=== PATIENT | female | born 1945 | race Two or more races ===

== ENCOUNTER → 2016-07-27 | Outpatient (REF) | payer MEDICARE, BC ==
[~2016-07-27] MED LIST: AREDS FORMULA PO; ASPI81TA85 PO; CENT1TAB PO; TRAZ50TA11 PO; VITA1CAP14 PO; VITA1DRO SL; ZOCO20TA PO
[2016-07-27 12:20] LABS: MEAN CORPUSCULAR HEMOGLOBIN 29.8 pg (27.0-33.0); MEAN CORPUSCULAR HGB CONC 33.1 g/dl (32.0-36.5); MEAN CORPUSCULAR VOLUME 90.2 fl (80.0-96.0); RED CELL DISTRIBUTION WIDTH 13.7 % (11.5-14.5)
[2016-07-27 13:04] LABS: ALBUMIN/GLOBULIN RATIO 1.33 (1.00-1.93); ALKALINE PHOSPHATASE 114 U/L (45-117); ALT/SGPT 39 U/L (12-78); ANION GAP 7 MEQ/L (8-16); AST/SGOT 25 U/L (15-37); BILIRUBIN,TOTAL 0.5 MG/DL (0.2-1.0); BLOOD UREA NITROGEN 18 MG/DL (7-18); CALCIUM LEVEL 9.1 MG/DL (8.8-10.2); CARBON DIOXIDE LEVEL 28 MEQ/L (21-32); CHLORIDE LEVEL 107 MEQ/L (98-107); CHOLESTEROL LEVEL 211 MG/DL (<200); CREATININE FOR GFR 0.88 MG/DL (0.55-1.02); GLOMERULAR FILTRATION RATE > 60.0 (>45); GLUCOSE, FASTING 80 MG/DL (80-110); POTASSIUM SERUM 4.7 MEQ/L (3.5-5.1); SODIUM LEVEL 142 MEQ/L (136-145); TRIGLYCERIDES LEVEL 133 MG/DL (<150)
[2016-07-28 10:47] LABS: HEP C VIRUS AB SCREEN MEDICARE 0.1 INDEX (<0.8)
== END ==
LOC: M SFHCPLAZ 10:12
PROVIDERS: ATTEND Nurse Practitioner Adult Health
DX: E78.00 Pure hypercholesterolemia, unspecified (principal); E55.9 Vitamin D deficiency, unspecified; Z11.59 Encounter for screening for other viral diseases; Z87.891 Personal history of nicotine dependence; Z23 Encounter for immunization; Z79.82 Long term (current) use of aspirin; Z79.899 Other long term (current) drug therapy; Z86.79 Personal history of other diseases of the circulatory system; Z82.49 Family history of ischemic heart disease and other diseases of the circulatory system
CPT/HCPCS: 36415; 80053; 80061; 82306; 85027; 90670; G0009; G0463; G0472

== ENCOUNTER → 2016-08-24 | Outpatient (REF) | LOC: M LAB 10:14 | PROVIDERS: ATTEND Nurse Practitioner Adult Health | DX: Z00.00 Encounter for general adult medical examination without abnormal findings (principal) ==

== ENCOUNTER → 2016-08-25 | Outpatient (CLI) | payer MEDICARE, BC ==
--- NOTE | 2016-08-25 15:29 | REP ---
REASON: Tobacco abuse. COMPARISON: None. [facility] examination [facility] terminal for interpretation in lung window settings only as per the protocol. In the left lower lobe, there is a 4 mm sized nodule. IMPRESSION: Positive CT lung screening exam. Signed by Fredrick Rojas DO 08/26/2016 09:03 A
== END ==
LOC: M RAD 14:31
PROVIDERS: ATTEND Nurse Practitioner Adult Health
DX: Z87.891 Personal history of nicotine dependence (principal)

== ENCOUNTER → 2016-09-13 | Outpatient (RCR) | payer MEDICARE, BC | LOC: M PT 08-23 12:44 | PROVIDERS: ATTEND Physician Assistant Surgical | DX: M54.2 Cervicalgia (principal); M54.5 Low back pain | CPT/HCPCS: 97110; 97162; G8978; G8979 ==

== ENCOUNTER 2016-09-20 12:05 | Outpatient (RCR) | payer MEDICARE, BC ==
[2016-11-11] MEDS ORDERED: VITA1CAP14 PO (12:31)
[2016-11-11] MEDS ORDERED: AREDS FORMULA PO (12:31)
[2016-11-11] MEDS ORDERED: CENT1TAB PO (12:31)
[2016-11-11] MEDS ORDERED: ZOCO20TA PO (12:31)
[2016-11-11] MEDS ORDERED: ASPI81TA85 PO (12:31)
[2016-11-11] MEDS ORDERED: VITA1DRO SL (12:31)
[2016-11-11] MEDS ORDERED: TRAZ50TA11 PO (12:31)
== END 2016-10-14 | disposition home or self-care (01) ==
LOC: M PT 12:05
PROVIDERS: ATTEND Physician Assistant Surgical
DX: Z51.89 Encounter for other specified aftercare (principal); M54.2 Cervicalgia; M54.5 Low back pain
CPT/HCPCS: 97110; G8978; G8979

== ENCOUNTER 2016-11-16 11:37 | Outpatient (CLI) | payer MEDICARE, BC ==
[~2016-11-16] VITALS: Ht 160 cm; Wt 72.6 kg
[2016-11-16] MEDS ORDERED: NS 1,000 ML IV ONE (11:45)
[2016-11-16] MEDS ORDERED: PROPOFOL 200 MG/20 ML VIAL As Ordered ONE (12:30)
[2016-11-16] MEDS ORDERED: LIDOCAINE 2% INJ 100 MG/5 ML SDV (FOR ANES.) As Ordered ONE (12:30)
--- NOTE | 2016-11-16 12:59 | ROOR ---
Patient Name: Netta Connor Procedure Date: 11/16/2016 12:46 PM Date of : 1945 Age: 71 Room: [facility] Gender: Female Note Status: Finalized Procedure: Upper Endoscopy + Biopsies Indications: Heartburn, Exclusion of Correa's esophagus Providers: Joshua Lay MD Referring MD: Myranda Delgado NP Requesting Provider: Medicines: Monitored Anesthesia Care Complications: No immediate complications. Procedure: Pre-Anesthesia Assessment: - The heart rate, respiratory rate, oxygen saturations, blood pressure, adequacy of pulmonary ventilation, and response to care were monitored throughout the procedure. The Endoscope was introduced through the mouth, and advanced to the second part of duodenum. The upper GI endoscopy was accomplished without difficulty. The patient tolerated the procedure well. Findings: The Z-line was irregular and was found 35 cm from the incisors. Multiple biopsies were obtained with cold forceps for evaluation to rule out Correa's Esophagus randomly at the gastroesophageal junction. A small hiatal hernia was present. Localized minimal inflammation characterized by congestion (edema) and erosions was found on the greater curvature of the stomach. The exam of the duodenum was otherwise normal. Impression: - Z-line irregular, 35 cm from the incisors. - Small hiatal hernia. - Acute gastritis. - Multiple biopsies were obtained at the gastroesophageal junction. - The examination was otherwise normal. Recommendation: - Patient has a contact number available for emergencies. The signs and symptoms of potential delayed complications were discussed with the patient. Return to normal activities tomorrow. Written discharge instructions were provided to the patient. - High fiber diet. - Discharge patient to home. - Continue present medications. - Follow an antireflux regimen. - Await pathology results. - Telephone GI clinic for pathology results in 1 week. - Check Portal Online for Path Results.([email or web address]) Joshua Lay MD Joshua Lay MD 11/16/2016 12:59:23 PM This report has been signed electronically. Number of Addenda: 0 Note Initiated On: 11/16/2016 12:46 PM Estimated Blood Loss: Estimated blood loss: none.
--- NOTE | 2016-11-16 13:12 | ROOR ---
Patient Name: Netta Connor Procedure Date: 11/16/2016 12:46 PM Date of : 1945 Age: 71 Room: [facility] Gender: Female Note Status: Finalized Procedure: Total Colonoscopy to Cecum Indications: Screening for colorectal malignant neoplasm Providers: Joshua Lay MD Referring MD: Myranda Delgado NP Requesting Provider: Medicines: Monitored Anesthesia Care Complications: No immediate complications. Procedure: Pre-Anesthesia Assessment: - The heart rate, respiratory rate, oxygen saturations, blood pressure, adequacy of pulmonary ventilation, and response to care were monitored throughout the procedure. The Colonoscope was introduced through the anus and advanced to the cecum, identified by appendiceal orifice and ileocecal valve. The colonoscopy was performed without difficulty. The patient tolerated the procedure well. The quality of the bowel preparation was good. Findings: The perianal and digital rectal examinations were normal. A few small-mouthed diverticula were found in the recto-sigmoid colon and sigmoid colon. The exam was otherwise without abnormality on direct and retroflexion views. Impression: - Diverticulosis in the recto-sigmoid colon and in the sigmoid colon. - The examination was otherwise normal on direct and retroflexion views. - No specimens collected. - The exam was otherwise normal to the cecum. Recommendation: - Patient has a contact number available for emergencies. The signs and symptoms of potential delayed complications were discussed with the patient. Return to normal activities tomorrow. Written discharge instructions were provided to the patient. - High fiber diet. - Discharge patient to home. - Continue present medications. - Repeat colonoscopy for symptoms only. - Return to referring physician. - The findings and recommendations were discussed with the patient's family. Joshua Lay MD Joshua Lay MD 11/16/2016 1:11:55 PM This report has been signed electronically. Number of Addenda: 0 Note Initiated On: 11/16/2016 12:46 PM Estimated Blood Loss: Estimated blood loss: none.
[2016-11-16 14:45] VITALS: BP 140/71
== END 2016-11-16 14:50 | disposition home or self-care (01) ==
LOC: M OPP 11:37
PROVIDERS: ATTEND Internal Medicine Gastroenterology
DX: Z12.11 Encounter for screening for malignant neoplasm of colon (principal); K57.30 Diverticulosis of large intestine without perforation or abscess without bleeding; R12 Heartburn; K44.9 Diaphragmatic hernia without obstruction or gangrene; K22.8 Other specified diseases of esophagus; K29.00 Acute gastritis without bleeding; K21.9 Gastro-esophageal reflux disease without esophagitis; E78.5 Hyperlipidemia, unspecified; I34.1 Nonrheumatic mitral (valve) prolapse; D64.9 Anemia, unspecified; M19.90 Unspecified osteoarthritis, unspecified site; M54.5 Low back pain; M54.2 Cervicalgia; Z96.641 Presence of right artificial hip joint; Z79.82 Long term (current) use of aspirin; Z79.899 Other long term (current) drug therapy
CPT/HCPCS: 43239; 88305; G0121

== ENCOUNTER 2017-01-13 07:12 | Day surgery (SDC) | payer MEDICARE, BC ==
[~2017-01-13] VITALS: Ht 160 cm; Wt 75.7 kg
[~2017-01-13 07:12] MED LIST changes: +OFLOXACIN 0.3 % (OCUFLOX) OPTH SOL 5ML OD ONE; +PHENYLEPHRINE 2.5% OPHTH SOL 2ML OD ONE; +PROPARACAINE 0.5% OPHTH SOL 15ML OD ONE; +TROPICAMIDE 1% OPHTH SOLN 2ML OD ONE
[2017-01-13] MEDS ORDERED: POVIDONE-IODINE 5% OPHTH PREP SOL 30ML As Ordered ONE (09:01)
[2017-01-13] MEDS ORDERED: ACETYLCHOLINE OPHTH SOLN 1% 2ML (MIOCHOL-E) As Ordered ONE (09:01)
[2017-01-13] MEDS ORDERED: BALANCED SALT IRRIGATION SOLUTION 500ML BAG (FOR OR EYE MACHINE) As Ordered ONE (09:02)
[2017-01-13] MEDS ORDERED: CEFUROXIME 1MG/0.1ML INTRACAMERAL INJ As Ordered ONE (09:02)
[2017-01-13] MEDS ORDERED: LIDOCAINE 0.75%/EPINEPHRINE 0.025% IN BSS 1ML SYR INTRACAMERAL (OR ONLY) As Ordered ONE (09:02)
[2017-01-13] MEDS ORDERED: DUOVISC (0.50ML VISCOAT/0.55ML PROVISC) OPHTH KIT As Ordered ONE (09:02)
[2017-01-13] MEDS ORDERED: fentaNYL 100 MCG/2 ML INJECTION (J3010) As Ordered ONE (09:12)
[2017-01-13] MEDS ORDERED: MIDAZOLAM INJ 2 MG/2 ML VIAL (J2250) As Ordered ONE (09:12)
[2017-01-13 10:30] VITALS: BP 140/79
--- NOTE | 2017-01-14 13:12 | RO ---
DATE OF PROCEDURE: 01/13/2017 PREOPERATIVE DIAGNOSIS: Visually significant nuclear sclerotic cataract right eye. POSTOPERATIVE DIAGNOSIS: Visually significant nuclear sclerotic cataract right eye. PROCEDURE: Cataract extraction with use of phacoemulsification and placement of intraocular lens, AU00T0, 24 diopter, right eye. SURGEON: Rodrigo Lay DO HOT HEADER OPERATOR: ANESTHESIA: Local with monitored anesthesia care (MAC). COMPLICATIONS: None. POSTOPERATIVE CONDITION: Stable. INDICATION FOR SURGERY: Blurred vision right eye affecting patient's activities of daily living. DESCRIPTION OF PROCEDURE: The patient was seen in the preoperative area and properly identified. The correct operative eye was identified and marked. Attention was turned to that eye. The patient received topical antibiotics in the preoperative area. The patient then received topical dilating drops consisting of tropicamide and phenylephrine. The patient was then transferred to the operating room. The correct side was re-identified. The patient received topical anesthetics and antibiotics on the surface of the eye. The eye was prepped and draped in a sterile fashion. The upper and lower eyelids were isolated with Tegaderm tape, and the lids were held open with an adjustable speculum. Using a sideport blade, a paracentesis incision was made. Intraocular preservative-free lidocaine was then injected into the anterior chamber. Viscoelastic was then injected into the anterior chamber through the paracentesis. Using a 2.65 mm sharp-tipped keratome, the anterior chamber was entered via a temporal clear corneal incision. A continuous curvilinear capsulorrhexis was created with the aid of a 26-gauge cystotome and Utrata forceps. Hydrodissection was performed with balanced salt solution (BSS) on a blunt cannula until the nucleus was freely mobile. The crystalline lens was phacoemulsified and aspirated. Additional cohesive viscoelastic was placed into the capsular bag to deepen it. A AU00T0, 24 diopter lens was placed into the capsular bag and confirmed by visualizing the continuous curvilinear capsulorrhexis. Additional irrigation and aspiration was used to remove cortical material and remaining viscoelastic. The clear corneal incision was hydrated with BSS on a blunt cannula. The lens was well positioned. The incisions were then tested for leaks and found to be negative. The eye was then palpated for appropriate pressure and adjusted accordingly with BSS. The eyelid speculum was carefully removed. TobraDex ointment was placed in the eye. An eye patch and shield were then secured over the eye. The patient tolerated the procedure well and was discharged to the recovery unit in a stable condition.
== END 2017-01-13 10:35 | disposition home or self-care (01) ==
LOC: M SDC 07:12
PROVIDERS: ATTEND Ophthalmology
DX: H25.11 Age-related nuclear cataract, right eye (principal); H33.10 Unspecified retinoschisis; H35.30 Unspecified macular degeneration; H04.129 Dry eye syndrome of unspecified lacrimal gland; I34.1 Nonrheumatic mitral (valve) prolapse; M50.30 Other cervical disc degeneration, unspecified cervical region; E78.5 Hyperlipidemia, unspecified; E55.9 Vitamin D deficiency, unspecified; R12 Heartburn; I73.9 Peripheral vascular disease, unspecified; M54.5 Low back pain; Z79.899 Other long term (current) drug therapy; Z79.82 Long term (current) use of aspirin; Z87.891 Personal history of nicotine dependence
CPT/HCPCS: 66984; J2250; J3010; V2632

== ENCOUNTER → 2017-07-19 | Outpatient (REF) | payer MEDICARE, BC ==
[2017-07-19 13:56] LABS: TOTAL 25(OH) VITAMIN D 46.3 NG/ML (30.0-100.0)
[2017-07-19 14:09] LABS: ALBUMIN/GLOBULIN RATIO 1.67 (1.00-1.93); ALKALINE PHOSPHATASE 106 U/L (45-117); ALT/SGPT 27 U/L (12-78); ANION GAP 6 MEQ/L (8-16); AST/SGOT 19 U/L (7-37); BILIRUBIN,TOTAL 0.4 MG/DL (0.2-1.0); BLOOD UREA NITROGEN 17 MG/DL (7-18); CALCIUM LEVEL 8.5 MG/DL (8.8-10.2); CARBON DIOXIDE LEVEL 28 MEQ/L (21-32); CHLORIDE LEVEL 108 MEQ/L (98-107); CHOLESTEROL LEVEL 165 MG/DL (<200); CHOLESTEROL RISK RATIO 2.291 (<5); CREATININE FOR GFR 0.73 MG/DL (0.55-1.30); GLOMERULAR FILTRATION RATE > 60.0 (>39); GLUCOSE, FASTING 76 MG/DL (70-100); HDL CHOLESTEROL 72 MG/DL (>40); LDL CHOLESTEROL 73.8 MG/DL (<100); NON-HDL-C 93 MG/DL; POTASSIUM SERUM 4.6 MEQ/L (3.5-5.1); SODIUM LEVEL 142 MEQ/L (136-145); TOTAL PROTEIN 6.4 GM/DL (6.4-8.2); TRIGLYCERIDES LEVEL 96 MG/DL (<150)
== END ==
LOC: M SFHCPLAZ 10:49
DX: Z00.00 Encounter for general adult medical examination without abnormal findings (principal); E78.2 Mixed hyperlipidemia; E55.9 Vitamin D deficiency, unspecified
CPT/HCPCS: 84443

== ENCOUNTER → 2017-09-12 | Outpatient (CLI) | payer MEDICARE, BC | LOC: M RAD 10:58 | DX: R91.1 Solitary pulmonary nodule (principal); J47.9 Bronchiectasis, uncomplicated | CPT/HCPCS: 71250 ==

== ENCOUNTER → 2017-10-27 | Outpatient (REF) | payer MEDICARE, BC | LOC: M LAB REF 13:20 | DX: R05 Cough (principal) | CPT/HCPCS: 87116 ==

== ENCOUNTER → 2017-11-15 | Outpatient (REF) | payer MEDICARE, BC | LOC: M LAB REF 13:15 | DX: R05 Cough (principal) | CPT/HCPCS: 87205 ==

== ENCOUNTER 2018-04-01 11:56 | Emergency (ER) | payer MEDICARE, BC ==
[~2018-04-01 11:56] MED LIST changes: -OFLOXACIN 0.3 % (OCUFLOX) OPTH SOL 5ML OD ONE; -PHENYLEPHRINE 2.5% OPHTH SOL 2ML OD ONE; -PROPARACAINE 0.5% OPHTH SOL 15ML OD ONE; +TRAZ-160 PO; -TRAZ50TA11 PO; -TROPICAMIDE 1% OPHTH SOLN 2ML OD ONE
[2018-04-01] MEDS ORDERED: ACETAMINOPHEN 325 MG TAB PO ONE (12:45)
--- NOTE | 2018-04-01 13:37 | REP ---
CT BRAIN WITHOUT CONTRAST: 04/01/2018. CLINICAL HISTORY: Trauma. FINDINGS: No prior study. Soft-tissue and bone windows are reviewed for each slice level. The lateral ventricles are midline, symmetric, and without dilatation or displacement. The third and fourth ventricles were unremarkable. Basal ganglia symmetric and normal. The wheeler-white junction differentiation was well maintained. Cortical stripe is preserved. There is no focal infarct, hemorrhage, mass, mass effect, or edema. No extra-axial fluid collection. Brainstem and cerebellum are unremarkable. Basal cisterns are intact. Visualized sinuses and mastoids clear. The skull base and calvarium show no fracture or focal lesion. Posterior parietal vertex shows a scalp hematoma in the midline. I do not see a definite embedded foreign body. IMPRESSION: 1. Scalp hematoma in the posterior parietal vertex without subjacent skull fracture. No foreign body seen there. No intracranial abnormality. No bleed, acute infarct, mass, atrophy or other significant intracranial process. Electronically Signed by Jose Wiggins MD 04/01/2018 07:49 P
--- NOTE | 2018-04-01 13:39 | REP ---
CT CERVICAL SPINE WITHOUT CONTRAST: 04/01/2018. CLINICAL HISTORY: Trauma. FINDINGS: Noncontrast cervical spine CT protocol followed with coronal and sagittal reconstructions. The ring of C1 is intact. Spinous processes, lamina, pedicles, facets, and transverse processes are without acute finding. There is no central canal stenosis. Cervical spondylosis at C5-6 and C6-7 with posterior osteophytes at both of these levels, greater at C5-6. A few millimeters of anterolisthesis of C4 on C5. No compression fractures, central canal stenosis, or prevertebral swelling. The bilateral foramina are intact throughout. Cervicothoracic junction aligns normally as does the craniocervical junction. C1-2 relationships normal on all views. No torticollis. IMPRESSION: 1. Cervical spondylosis at C5-6 and C6-7, a few millimeters anterolisthesis of C4 on C5 but no compression fracture, malalignment, any significant central canal or foraminal stenosis. 2. The dens unremarkable, and C1-2 relationships normal. 3. No prevertebral swelling or other soft tissue abnormality visible. Electronically Signed by Jose Wiggins MD 04/01/2018 07:49 P
--- NOTE | 2018-04-01 14:17 | REP ---
RIGHT HIP AP LATERAL: 04/01/2018. CLINICAL HISTORY: Right hip pain, patient fell. Status post remote right total hip arthroplasty. FINDINGS: No prior study. The acetabular cup and its single screw in the [place] acetabulum noted. Its articular relationship with the prosthetic femoral head is maintained on both views. Femoral stem applies normally to the proximal femoral shaft at the single cerclage wire level in the lesser trochanter in a circumferential fashion about the intertrochanteric bone. There is no acute fracture. There are a few small heterotopic bone foci in the soft tissues above the greater trochanter. Pubic rami, symphysis pubis, and that portion of right iliac bone and sacrum visible were unremarkable. IMPRESSION: 1. Status post right total hip arthroplasty with the components of the prosthesis maintaining normal relationship with each other and the [place] bone. No fracture, hardware failure, or other acute finding. Electronically Signed by Jose Wiggins MD 04/01/2018 07:53 P
[2018-04-01 14:44] VITALS: BP 148/79
--- NOTE | 2018-04-10 20:19 | ED PDOC ---
Post-Departure Follow-Up ford tejeda faxed formal report of ct c spine for fu Mateus Shannon MD Apr 10, 2018 20:19
== END 2018-04-01 14:46 | disposition home or self-care (01) ==
LOC: EDBD 11:56 → M ED 11:56
DX: S06.0X0A Concussion without loss of consciousness, initial encounter (principal); S00.03XA Contusion of scalp, initial encounter; W01.0XXA Fall on same level from slipping, tripping and stumbling without subsequent striking against object, initial encounter; Y92.008 Other place in unspecified non-institutional (private) residence as the place of occurrence of the external cause; Y93.01 Activity, walking, marching and hiking; Y99.8 Other external cause status; Z79.891 Long term (current) use of opiate analgesic; Z79.899 Other long term (current) drug therapy; I34.1 Nonrheumatic mitral (valve) prolapse; M19.90 Unspecified osteoarthritis, unspecified site

== ENCOUNTER → 2018-09-01 | Outpatient (REF) | payer MEDICARE, BC ==
[~2018-09-01] MED LIST changes: -TRAZ-160 PO; +TRAZ-252 PO
[2018-09-01 11:55] LABS: HEMATOCRIT 37.7 % (36.0-47.0); HEMOGLOBIN 11.7 g/dl (12.0-15.5); MEAN CORPUSCULAR HEMOGLOBIN 28.8 pg (27.0-33.0); MEAN CORPUSCULAR VOLUME 92.9 fl (80.0-96.0); PLATELET COUNT, AUTOMATED 210 10^3/uL (150-450); RED BLOOD COUNT 4.06 10^6/uL (4.00-5.40); WHITE BLOOD COUNT 4.5 10^3/uL (4.0-10.0)
[2018-09-01 12:50] LABS: ALBUMIN 3.9 GM/DL (3.2-5.2); ALT/SGPT 24 U/L (12-78); BILIRUBIN,TOTAL < 0.1 MG/DL (0.2-1.0); BLOOD UREA NITROGEN 20 MG/DL (7-18); CALCIUM LEVEL 8.9 MG/DL (8.8-10.2); CARBON DIOXIDE LEVEL 28 MEQ/L (21-32); CHLORIDE LEVEL 112 MEQ/L (98-107); CHOLESTEROL LEVEL 174 MG/DL (<200); CHOLESTEROL RISK RATIO 2.383 (<5); CREATININE FOR GFR 0.81 MG/DL (0.55-1.30); GLOMERULAR FILTRATION RATE > 60.0 (>39); GLUCOSE, FASTING 99 MG/DL (70-100); HDL CHOLESTEROL 73 MG/DL (>40); LDL CHOLESTEROL 83 MG/DL (<100); NON-HDL-C 101 MG/DL; POTASSIUM SERUM 4.5 MEQ/L (3.5-5.1); SODIUM LEVEL 147 MEQ/L (136-145); TOTAL PROTEIN 6.3 GM/DL (6.4-8.2); TRIGLYCERIDES LEVEL 91 MG/DL (<150)
[2018-09-01 15:14] LABS: TOTAL 25(OH) VITAMIN D 47.1 NG/ML (30.0-100.0)
== END ==
LOC: M SFHCPLAZ 07:58
PROVIDERS: ATTEND Nurse Practitioner Adult Health
DX: R30.0 Dysuria (principal); Z00.00 Encounter for general adult medical examination without abnormal findings; E55.9 Vitamin D deficiency, unspecified; E78.2 Mixed hyperlipidemia; Z79.899 Other long term (current) drug therapy

== ENCOUNTER → 2019-01-24 | Outpatient (REF) | payer MEDICARE, BC ==
[2019-01-24 13:44] LABS: ALT/SGPT 31 U/L (12-78); BILIRUBIN,TOTAL 0.4 MG/DL (0.2-1.0); BLOOD UREA NITROGEN 20 MG/DL (7-18); CALCIUM LEVEL 9.3 MG/DL (8.8-10.2); CARBON DIOXIDE LEVEL 25 MEQ/L (21-32); CHLORIDE LEVEL 108 MEQ/L (98-107); CHOLESTEROL LEVEL 177 MG/DL (<200); CHOLESTEROL RISK RATIO 2.132 (<5); CREATININE FOR GFR 0.77 MG/DL (0.55-1.30); GLOMERULAR FILTRATION RATE > 60.0 (>39); GLUCOSE, FASTING 91 MG/DL (70-100); HDL CHOLESTEROL 83 MG/DL (>40); LDL CHOLESTEROL 78 MG/DL (<100); NON-HDL-C 94 MG/DL; POTASSIUM SERUM 4.3 MEQ/L (3.5-5.1); SODIUM LEVEL 142 MEQ/L (136-145); TOTAL 25(OH) VITAMIN D 56.1 NG/ML (30.0-100.0); TOTAL PROTEIN 6.8 GM/DL (6.4-8.2); TRIGLYCERIDES LEVEL 80 MG/DL (<150)
== END ==
LOC: M SFHCPLAZ 11:17
PROVIDERS: ATTEND Nurse Practitioner Adult Health
DX: E78.2 Mixed hyperlipidemia (principal); E55.9 Vitamin D deficiency, unspecified
CPT/HCPCS: 36415; 80053; 80061; 82306; G0463

== ENCOUNTER → 2019-08-09 | Outpatient (REF) | payer MEDICARE, BC ==
[~2019-08-09] MED LIST changes: -ASPI81TA85 PO; +ASPI81TA86 PO
[2019-08-09 14:18] LABS: HEMOGLOBIN 12.3 g/dl (12.0-15.5); MEAN CORPUSCULAR HEMOGLOBIN 28.6 pg (27.0-33.0); MEAN CORPUSCULAR HGB CONC 30.8 g/dl (32.0-36.5); PLATELET COUNT, AUTOMATED 228 10^3/uL (150-450); WHITE BLOOD COUNT 5.1 10^3/uL (4.0-10.0)
[2019-08-09 14:43] LABS: ALBUMIN 4.1 GM/DL (3.2-5.2); ALT/SGPT 33 U/L (12-78); BILIRUBIN,TOTAL 0.4 MG/DL (0.2-1.0); BLOOD UREA NITROGEN 20 MG/DL (7-18); CALCIUM LEVEL 9.2 MG/DL (8.8-10.2); CARBON DIOXIDE LEVEL 27 MEQ/L (21-32); CHLORIDE LEVEL 110 MEQ/L (98-107); CHOLESTEROL LEVEL 171 MG/DL (<200); CHOLESTEROL RISK RATIO 2.192 (<5); CREATININE FOR GFR 0.88 MG/DL (0.55-1.30); GLOMERULAR FILTRATION RATE > 60.0 (>39); GLUCOSE, FASTING 76 MG/DL (70-100); HDL CHOLESTEROL 78 MG/DL (>40); LDL CHOLESTEROL 76 MG/DL (<100); NON-HDL-C 93 MG/DL; POTASSIUM SERUM 4.8 MEQ/L (3.5-5.1); SODIUM LEVEL 144 MEQ/L (136-145); TRIGLYCERIDES LEVEL 85 MG/DL (<150)
== END ==
LOC: M SFHCPLAZ 11:59
PROVIDERS: ATTEND Nurse Practitioner Adult Health
DX: E78.2 Mixed hyperlipidemia (principal)

== ENCOUNTER → 2020-03-12 | Outpatient (CLI) | payer SELFPAY | LOC: M LABSMTC 12:09 | PROVIDERS: ATTEND Pediatrics | DX: Z20.822 Contact with and (suspected) exposure to COVID-19 (principal) ==

== ENCOUNTER → 2020-07-28 | Outpatient (CLI) | payer MEDICARE, BC ==
--- NOTE | 2020-07-28 14:28 | REPPI ---
INDICATION: M54.2 NECK PAIN. COMPARISON: None. TECHNIQUE: Nine views cervical spine, full series. FINDINGS: There is no compression fracture. There is reversal of the normal cervical lordosis which is flexed with flexion and extension, with no significant subluxation. There is no compression fracture. There is no prevertebral soft tissue swelling. There is mild spurring of C 5 through C7 with moderate intervening disc space narrowing and subchondral sclerosis at C5-6 and C6-7. There is diffuse narrowing, sclerosis and spurring at the posterior facet joints. There is no radiographic evidence of significant neural foraminal narrowing. IMPRESSION: Degenerative changes as discussed above. <Electronically signed by Luiz Bosch > 07/28/20 [id number]
--- NOTE | 2020-07-28 14:30 | REPPI ---
INDICATION: M54.5 LOW BACK PAIN. COMPARISON: None. TECHNIQUE: Five views lumbosacral spine. FINDINGS: There is no compression fracture or malalignment. There is normal lumbar lordosis. There is moderate disc space narrowing and subchondral sclerosis at L3-4 and L4-5, with mild narrowing at L5-S1. The posterior elements are intact. There is slight curvature toward the left. Right hip prosthesis is noted. IMPRESSION: Degenerative changes without compression fracture. <Electronically signed by Luiz Bosch > 07/28/20 [id number]
== END ==
LOC: M PLAIMG 11:39
PROVIDERS: ATTEND Nurse Practitioner Adult Health
DX: M50.322 Other cervical disc degeneration at C5-C6 level (principal); M50.323 Other cervical disc degeneration at C6-C7 level; M25.78 Osteophyte, vertebrae; M48.02 Spinal stenosis, cervical region; M48.07 Spinal stenosis, lumbosacral region; Z96.641 Presence of right artificial hip joint; Z79.899 Other long term (current) drug therapy
CPT/HCPCS: 36415; 72052; 72110; 80053; 80061; 82306; 84443; 85027; G0463

== ENCOUNTER → 2020-07-28 | Outpatient (REF) | payer MEDICARE, BC ==
[2020-07-28 13:27] LABS: HEMATOCRIT 39.3 % (36.0-47.0); MEAN CORPUSCULAR HEMOGLOBIN 28.4 pg (27.0-33.0); MEAN CORPUSCULAR HGB CONC 30.5 g/dl (32.0-36.5); MEAN CORPUSCULAR VOLUME 93.1 fl (80.0-96.0); PLATELET COUNT, AUTOMATED 225 10^3/uL (150-450); RED BLOOD COUNT 4.22 10^6/uL (4.00-5.40); WHITE BLOOD COUNT 5.7 10^3/uL (4.0-10.0)
[2020-07-28 14:09] LABS: ALBUMIN 3.7 GM/DL (3.2-5.2); ALT/SGPT 29 U/L (12-78); BILIRUBIN,TOTAL 0.3 MG/DL (0.2-1.0); BLOOD UREA NITROGEN 21 MG/DL (7-18); CALCIUM LEVEL 8.6 MG/DL (8.8-10.2); CARBON DIOXIDE LEVEL 28 MEQ/L (21-32); CHLORIDE LEVEL 108 MEQ/L (98-107); CHOLESTEROL LEVEL 184 MG/DL (<200); CHOLESTEROL RISK RATIO 2.114 (<5); CREATININE FOR GFR 0.68 MG/DL (0.55-1.30); GLOMERULAR FILTRATION RATE > 60.0 (>39); GLUCOSE, FASTING 83 MG/DL (70-100); HDL CHOLESTEROL 87 MG/DL (>40); LDL CHOLESTEROL 78 MG/DL (<100); NON-HDL-C 97 MG/DL; SODIUM LEVEL 141 MEQ/L (136-145); TOTAL 25(OH) VITAMIN D 47.3 NG/ML (30.0-100.0); TOTAL PROTEIN 6.8 GM/DL (6.4-8.2); TRIGLYCERIDES LEVEL 94 MG/DL (<150)
== END ==
LOC: M SFHCPLAZ 11:37
PROVIDERS: ATTEND Nurse Practitioner Adult Health
DX: Z00.00 Encounter for general adult medical examination without abnormal findings (principal); E78.2 Mixed hyperlipidemia; E55.9 Vitamin D deficiency, unspecified; Z79.899 Other long term (current) drug therapy

== ENCOUNTER → 2021-02-04 | Outpatient (CLI) | payer MEDICARE, BC ==
--- NOTE | 2021-02-04 15:47 | REP ---
INDICATION: LUNG NODULE COMPARISON: 09/12/2017 TECHNIQUE: Axial noncontrast images from the thoracic inlet to the upper abdomen using low-dose lung screening technique (LDCT). FINDINGS: Lung silva demonstrate chronic changes including stable apical scarring. Previously identified small nodule in the periphery of the left lower lobe is decreased in size (series 201; image 67). There is a new 6 mm somewhat tubular appearing density in the anterior aspect of the lingula (series 201; images 45-46) which may represent inspissated material in focal chronic dilated terminal bronchus based on its configuration. No acute consolidation, further suspicious nodule or mass. No effusion. No pneumothorax. Tracheobronchial tree is patent. IMPRESSION: Lung-RADS category 3. A 6 mm density in the lingula as described above likely benign finding although new as compared to prior examinations and 6 month follow-up is recommended to confirm stability. <Electronically signed by Mukul Robins > 02/04/21 [id number]
== END ==
LOC: M RAD 14:55
PROVIDERS: ATTEND Nurse Practitioner Adult Health
DX: R91.1 Solitary pulmonary nodule (principal)

== ENCOUNTER → 2021-08-03 | Outpatient (REF) | payer MEDICARE, BC ==
[2021-08-03 19:48] LABS: APPEARANCE, URINE CLEAR (CLEAR); BACTERIA, URINE AUTO NEGATIVE (NEGATIVE); BILIRUBIN, URINE AUTO NEGATIVE (NEGATIVE); BLOOD, URINE BLOOD NEGATIVE (NEGATIVE); COLOR, URINE YELLOW (YELLOW); GLUCOSE, URINE (UA) AUTO NEGATIVE (NEGATIVE); KETONE, URINE AUTO NEGATIVE (NEGATIVE); LEUKOCYTE ESTERASE, URINE AUTO NEGATIVE (NEGATIVE); MUCUS, URINE SMALL (NEGATIVE); NITRITE, URINE AUTO NEGATIVE (NEGATIVE); PROTEIN, URINE AUTO NEGATIVE (NEGATIVE); RBC, URINE AUTO 0 /HPF (0-3); SPECIFIC GRAVITY URINE AUTO 1.008 (1.002-1.035); SQUAMOUS EPITHELIAL CELL UR AU 0 /HPF (0-6); UROBILINOGEN, URINE AUTO 0.2 mg/dL (0.0-2.0); WBC, URINE AUTO 0 /HPF (0-3)
== END ==
LOC: M SFHCPLAZ 18:23
PROVIDERS: ATTEND Nurse Practitioner Adult Health
DX: Z01.818 Encounter for other preprocedural examination (principal)

== ENCOUNTER → 2021-10-14 | Outpatient (CLI) | payer MEDICARE, BC ==
[~2021-10-14] MED LIST changes: +SIMV-253 PO; -ZOCO20TA PO
== END ==
LOC: M PLALAB 12:29
PROVIDERS: ATTEND Allergy & Immunology Allergy
DX: T78.02XA Anaphylactic reaction due to shellfish (crustaceans), initial encounter (principal)

== ENCOUNTER → 2021-10-21 | Outpatient (CLI) | payer MEDICARE, BC | LOC: M RAD 13:38 | PROVIDERS: ATTEND Nurse Practitioner Adult Health | DX: Z12.2 Encounter for screening for malignant neoplasm of respiratory organs (principal); F17.210 Nicotine dependence, cigarettes, uncomplicated ==

== ENCOUNTER → 2022-03-15 | Outpatient (CLI) | payer MEDICARE, BC ==
[2022-03-15 16:19] LABS: TOTAL IRON BINDING CAPACITY 322 UG/DL (250-425)
[2022-03-15 16:20] LABS: ALBUMIN 4.1 G/DL (3.2-5.2); ALKALINE PHOSPHATASE 121 U/L (46-116); ALT/SGPT 26 U/L (7.0-40); AST/SGOT 30 U/L (<34); BILIRUBIN,TOTAL 0.6 MG/DL (0.3-1.2); BLOOD UREA NITROGEN 17 MG/DL (9-23); CALCIUM LEVEL 9.3 MG/DL (8.3-10.6); CARBON DIOXIDE LEVEL 28 MMOL/L (20-31); CHLORIDE LEVEL 105 MMOL/L (98-107); CHOLESTEROL LEVEL 175 MG/DL (<200); CHOLESTEROL RISK RATIO 1.94 (<5); CREATININE FOR GFR 0.73 MG/DL (0.55-1.30); GLOMERULAR FILTRATION RATE > 60.0 (>39); GLUCOSE, FASTING 86 MG/DL (74-106); HDL CHOLESTEROL 90.2 MG/DL (>40); IRON (FE) 57 UG/DL (50-170); NON-HDL-C 85 MG/DL; PERCENT SATURATION 17.7 % (13.2-45.0); POTASSIUM SERUM 4.4 MMOL/L (3.5-5.1); SODIUM LEVEL 140 MMOL/L (136-145); TOTAL PROTEIN 6.9 G/DL (5.7-8.2); TRIGLYCERIDES LEVEL 94 MG/DL (<150)
[2022-03-15 16:21] LABS: FERRITIN 44.8 NG/ML (7.3-270.7)
[2022-03-15 16:26] LABS: HEMATOCRIT 40.5 % (36.0-47.0); HEMOGLOBIN 12.3 g/dl (12.0-15.5); MEAN CORPUSCULAR HEMOGLOBIN 28.3 pg (27.0-33.0); MEAN CORPUSCULAR HGB CONC 30.4 g/dl (32.0-36.5); MEAN CORPUSCULAR VOLUME 93.1 fl (80.0-96.0); PLATELET COUNT, AUTOMATED 232 10^3/uL (150-450); RED BLOOD COUNT 4.35 10^6/uL (4.00-5.40); WHITE BLOOD COUNT 5.7 10^3/uL (4.0-10.0)
== END ==
LOC: M PLALAB 12:18
PROVIDERS: ATTEND Nurse Practitioner Adult Health
DX: E78.2 Mixed hyperlipidemia (principal); D50.9 Iron deficiency anemia, unspecified

== ENCOUNTER → 2022-04-12 | Outpatient (REF) | payer MEDICARE, BC ==
[2022-04-12 17:50] LABS: APPEARANCE, URINE CLEAR (CLEAR); BACTERIA, URINE AUTO NEGATIVE (NEGATIVE); BILIRUBIN, URINE AUTO NEGATIVE (NEGATIVE); BLOOD, URINE BLOOD NEGATIVE (NEGATIVE); COLOR, URINE YELLOW (YELLOW); GLUCOSE, URINE (UA) AUTO NEGATIVE (NEGATIVE); KETONE, URINE AUTO NEGATIVE (NEGATIVE); LEUKOCYTE ESTERASE, URINE AUTO NEGATIVE (NEGATIVE); NITRITE, URINE AUTO NEGATIVE (NEGATIVE); PROTEIN, URINE AUTO NEGATIVE (NEGATIVE); RBC, URINE AUTO 2 /HPF (0-3); SPECIFIC GRAVITY URINE AUTO 1.016 (1.002-1.035); SQUAMOUS EPITHELIAL CELL UR AU 0 /HPF (0-6); UROBILINOGEN, URINE AUTO 0.2 mg/dL (0.0-2.0); WBC, URINE AUTO 3 /HPF (0-3)
== END ==
LOC: M SMT 17:20
PROVIDERS: ATTEND Physician Assistant
DX: R35.0 Frequency of micturition (principal)

== ENCOUNTER → 2022-04-16 | Outpatient (CLI) | payer MEDICARE, BC | LOC: M RAD 12:31 | PROVIDERS: ATTEND Nurse Practitioner Adult Health | DX: R91.8 Other nonspecific abnormal finding of lung field (principal) ==

== ENCOUNTER → 2022-06-15 | Outpatient (REF) | payer MEDICARE, BC | LOC: M SFHCWAGY 17:28 | PROVIDERS: ATTEND Specialist | DX: N76.1 Subacute and chronic vaginitis (principal) ==

== ENCOUNTER → 2022-09-08 | Outpatient (CLI) | payer MEDICARE, BC | LOC: M RAD 07:02 | PROVIDERS: ATTEND Nurse Practitioner Adult Health | DX: R91.8 Other nonspecific abnormal finding of lung field (principal) ==

== ENCOUNTER → 2023-03-01 | Outpatient (CLI) | payer MEDICARE, BC | LOC: M WHC 12:25 | PROVIDERS: ATTEND Nurse Practitioner Adult Health | DX: Z12.31 Encounter for screening mammogram for malignant neoplasm of breast (principal); Z13.820 Encounter for screening for osteoporosis; Z78.0 Asymptomatic menopausal state ==

== ENCOUNTER → 2023-04-29 | Outpatient (CLI) | payer MEDICARE, BC ==
[2023-04-29 12:10] LABS: HEMATOCRIT 38.1 % (36.0-47.0); HEMOGLOBIN 12.1 g/dl (12.0-15.5); MEAN CORPUSCULAR HEMOGLOBIN 29.2 pg (27.0-33.0); MEAN CORPUSCULAR HGB CONC 31.8 g/dl (32.0-36.5); PLATELET COUNT, AUTOMATED 184 10^3/uL (150-450); RED BLOOD COUNT 4.14 10^6/uL (4.00-5.40); WHITE BLOOD COUNT 4.3 10^3/uL (4.0-10.0)
[2023-04-29 12:46] LABS: FERRITIN 45.6 NG/ML (7.3-270.7); TOTAL 25(OH) VITAMIN D 53.1 NG/ML (20.0-100.0)
[2023-04-29 12:47] LABS: THYROID STIMULATING HORMONE 3.439 uIU/ML (0.55-4.78)
[2023-04-29 12:48] LABS: FREE T4 0.95 NG/DL (0.89-1.76)
[2023-04-29 12:49] LABS: TOTAL IRON BINDING CAPACITY 283 UG/DL (250-425)
[2023-04-29 12:50] LABS: ALBUMIN 3.7 G/DL (3.2-5.2); ALKALINE PHOSPHATASE 90 U/L (46-116); ALT/SGPT 24 U/L (7.0-40); AST/SGOT 19 U/L (<34); BILIRUBIN,TOTAL 0.7 MG/DL (0.3-1.2); BLOOD UREA NITROGEN 23 MG/DL (9-23); CALCIUM LEVEL 8.9 MG/DL (8.3-10.6); CARBON DIOXIDE LEVEL 28 MMOL/L (20-31); CHLORIDE LEVEL 110 MMOL/L (98-107); CHOLESTEROL LEVEL 179 MG/DL (<200); CHOLESTEROL RISK RATIO 2.49 (<5); CREATININE FOR GFR 0.86 MG/DL (0.55-1.30); GLOMERULAR FILTRATION RATE > 60.0 (>39); GLUCOSE, FASTING 87 MG/DL (74-106); HDL CHOLESTEROL 71.7 MG/DL (>40); IRON (FE) 64 UG/DL (50-170); LDL CHOLESTEROL 91.7 MG/DL (<100); NON-HDL-C 107.3 MG/DL; PERCENT SATURATION 22.6 % (13.2-45.0); POTASSIUM SERUM 4.5 MMOL/L (3.5-5.1); SODIUM LEVEL 144 MMOL/L (136-145); TOTAL PROTEIN 5.9 G/DL (5.7-8.2); TRIGLYCERIDES LEVEL 78 MG/DL (<150)
== END ==
LOC: M WUC 08:31
PROVIDERS: ATTEND Nurse Practitioner Adult Health
DX: D50.9 Iron deficiency anemia, unspecified (principal); E78.2 Mixed hyperlipidemia; E55.9 Vitamin D deficiency, unspecified; M54.50 Low back pain, unspecified; Z13.29 Encounter for screening for other suspected endocrine disorder

== ENCOUNTER → 2023-12-09 | Outpatient (CLI) | payer MEDICARE, BC ==
[2023-12-09 12:42] LABS: HEMATOCRIT 40.5 % (36.0-47.0); HEMOGLOBIN 12.9 g/dl (12.0-15.5); MEAN CORPUSCULAR HEMOGLOBIN 29.5 pg (27.0-33.0); MEAN CORPUSCULAR HGB CONC 31.9 g/dl (32.0-36.5); MEAN CORPUSCULAR VOLUME 92.7 fl (80.0-96.0); PLATELET COUNT, AUTOMATED 222 10^3/uL (150-450); RED BLOOD COUNT 4.37 10^6/uL (4.00-5.40)
[2023-12-09 12:47] LABS: IRON (FE) 63 UG/DL (50-170); PERCENT SATURATION 20.5 % (13.2-45.0); TOTAL IRON BINDING CAPACITY 307 UG/DL (250-425)
[2023-12-09 12:48] LABS: ALBUMIN 3.9 G/DL (3.2-5.2); ALKALINE PHOSPHATASE 119 U/L (35-104); ALT/SGPT 26 U/L (7.0-40); AST/SGOT 21 U/L (<34); BILIRUBIN,TOTAL 0.7 MG/DL (0.3-1.2); BLOOD UREA NITROGEN 20 MG/DL (9-23); CALCIUM LEVEL 9.4 MG/DL (8.3-10.6); CARBON DIOXIDE LEVEL 28 MMOL/L (20-31); CHLORIDE LEVEL 112 MMOL/L (98-107); CHOLESTEROL LEVEL 192 MG/DL (<200); CHOLESTEROL RISK RATIO 2.73 (<5); CREATININE FOR GFR 0.81 MG/DL (0.55-1.30); GLOMERULAR FILTRATION RATE > 60.0 (>39); GLUCOSE, FASTING 97 MG/DL (74-106); HDL CHOLESTEROL 70.2 MG/DL (>40); LDL CHOLESTEROL 102.4 MG/DL (<100); NON-HDL-C 121.8 MG/DL; POTASSIUM SERUM 4.4 MMOL/L (3.5-5.1); SODIUM LEVEL 143 MMOL/L (136-145); TOTAL PROTEIN 6.7 G/DL (5.7-8.2); TRIGLYCERIDES LEVEL 97 MG/DL (<150)
[2023-12-09 12:49] LABS: FREE T4 1.06 NG/DL (0.89-1.76); THYROID STIMULATING HORMONE 2.911 uIU/ML (0.55-4.78)
[2023-12-09 12:50] LABS: FERRITIN 61.9 NG/ML (7.3-270.7)
== END ==
LOC: M WUC 08:15
PROVIDERS: ATTEND Nurse Practitioner Adult Health
DX: D50.9 Iron deficiency anemia, unspecified (principal); E78.2 Mixed hyperlipidemia; Z13.29 Encounter for screening for other suspected endocrine disorder

== ENCOUNTER → 2024-03-01 | Outpatient (CLI) | payer MEDICARE, BC | LOC: M RAD 06:47 | PROVIDERS: ATTEND Nurse Practitioner Adult Health | DX: Z87.891 Personal history of nicotine dependence (principal) ==

== ENCOUNTER → 2024-10-30 | Outpatient (CLI) | payer MEDICARE, BC | LOC: M WHC 10:39 | PROVIDERS: ATTEND Nurse Practitioner Adult Health | DX: Z12.31 Encounter for screening mammogram for malignant neoplasm of breast (principal) ==

== ENCOUNTER → 2024-10-30 | Outpatient (CLI) | payer MEDICARE, BC ==
[2024-10-30 13:56] LABS: PLATELET COUNT, AUTOMATED 224 10^3/uL (150-450)
[2024-10-30 14:19] LABS: ALT/SGPT 20.0 U/L (7.0-40); AST/SGOT 22.0 U/L (<34); CALCIUM LEVEL 9.5 MG/DL (8.3-10.6); CARBON DIOXIDE LEVEL 28.0 MMOL/L (20-31); CHLORIDE LEVEL 107.0 MMOL/L (98-107); CHOLESTEROL LEVEL 200.0 MG/DL (<200); CHOLESTEROL RISK RATIO 2.65 (<5); CREATININE FOR GFR 0.79 MG/DL (0.55-1.30); GLOMERULAR FILTRATION RATE 76.5 (>39); LDL CHOLESTEROL 103.5 MG/DL (<100); NON-HDL-C 124.7 MG/DL; POTASSIUM SERUM 4.7 MMOL/L (3.5-5.1); SODIUM LEVEL 142.0 MMOL/L (136-145); TRIGLYCERIDES LEVEL 106.0 MG/DL (<150)
[2024-10-30 14:21] LABS: TOTAL 25(OH) VITAMIN D 42.0 NG/ML (20.0-100.0)
[2024-10-30 14:22] LABS: FREE T4 1.15 NG/DL (0.89-1.76)
== END ==
LOC: M PLALAB 09:58
PROVIDERS: ATTEND Nurse Practitioner Adult Health
DX: D50.9 Iron deficiency anemia, unspecified (principal); E78.2 Mixed hyperlipidemia; Z13.29 Encounter for screening for other suspected endocrine disorder; E55.9 Vitamin D deficiency, unspecified

== ENCOUNTER 2025-01-14 23:52 | Emergency (ER) | payer MEDICARE, BC ==
[~2025-01-14] VITALS: Ht 160 cm; Wt 74.1 kg
[2025-01-15] MEDS: NS (Normal Saline) 0.9% 1,000 ML IV ONE (00:58)
[2025-01-15 01:10] LABS: BASO # 0.0 10^3/uL (0.0-0.2); BASO % 0.5 % (0.0-1.0); EOS # 0.2 10^3/uL (0.0-0.5); EOS % 3.5 % (0.0-3.0); LYMPH # 1.5 10^3/uL (1.5-5.0); LYMPH % 23.4 % (24.0-44.0); MONO # 0.6 10^3/uL (0.0-0.8); MONO % 8.9 % (2.0-8.0); NEUTROPHILS # 4.0 10^3/uL (1.5-8.5); NEUTROPHILS % 62.3 % (36.0-66.0); PLATELET COUNT, AUTOMATED 240 10^3/uL (150-450)
[2025-01-15 01:36] LABS: CALCIUM LEVEL 9.3 MG/DL (8.3-10.6); CARBON DIOXIDE LEVEL 28.0 MMOL/L (20-31); CHLORIDE LEVEL 106.0 MMOL/L (98-107); CREATININE FOR GFR 0.79 MG/DL (0.55-1.30); GLOMERULAR FILTRATION RATE 76.5 (>39); MAGNESIUM LEVEL 2.0 MG/DL (1.8-2.4); POTASSIUM SERUM 3.7 MMOL/L (3.5-5.1); SODIUM LEVEL 143.0 MMOL/L (136-145)
[2025-01-15 03:37] VITALS: TEMP 98.6
[2025-01-15 05:05] VITALS: BP 165/87; O2SAT 95
== END 2025-01-15 05:16 | disposition home or self-care (01) ==
LOC: EDBD 23:52 → M ED 23:52
DX: R00.2 Palpitations (principal); T88.7XXA Unspecified adverse effect of drug or medicament, initial encounter; R00.0 Tachycardia, unspecified; E78.5 Hyperlipidemia, unspecified; E55.9 Vitamin D deficiency, unspecified; I10 Essential (primary) hypertension; Z79.82 Long term (current) use of aspirin; Z79.899 Other long term (current) drug therapy